=== PATIENT | male | born 1980 | race Caucasian/White ===

== ENCOUNTER 2017-04-03 10:21 | Emergency (ER) | payer MEDICAID ==
[~2017-04-03] VITALS: Ht 162.6 cm; Wt 78.9 kg
--- NOTE | 2017-04-03 10:29 | NUR ---
Patient ambulated to bed 09.
[2017-04-03 10:33] VITALS: BP 136/99
--- NOTE | 2017-04-03 10:38 | NUR ---
PATIENT BIB FAMILY C/O COUGH AND FEVER X 3 DAYS.PT HAS PRODUCTIVE COUGH;HX OF ASTHMA;RX OF QVAR . DENIES N/V/D; SKIN IS PINK/WARM/DRY; AAOX4 WITH EVEN AND STEADY GAIT; LUNGS CLEAR BL; HR EVEN AND REGULAR;PATIENT STATES PAIN OF 9/10 AT THIS TIME; PATIENT POSITIONED FOR COMFORT; HOB ELEVATED; BEDRAILS UP X2; BED DOWN. ALL MONITORS IN PLACED;ER MD MADE AWARE OF PT STATUS.
--- NOTE | 2017-04-03 11:10 | NUR ---
Dr. Leo evaluating patient at bedside.
--- NOTE | 2017-04-03 11:18 | NUR ---
XRAY AT BEDSIDE.
--- NOTE | 2017-04-03 11:31 | NUR ---
Patient discharged with v/s stable. Written and verbal after care instructions given and explained. Patient alert, oriented and verbalized understanding of instructions. Ambulatory with to car. All questions addressed prior to discharge. ID band removed. Patient advised to follow up with PMD. Rx of PREDNISONE AND ALBUTEROL given. Patient educated on indication of medication including possible reaction and side effects. Opportunity to ask questions provided and answered.
[2017-04-03 11:32] VITALS: BP 118/93
== END 2017-04-03 11:31 | disposition home or self-care (01) ==
LOC: MED 10:21
DX: J45.901 Unspecified asthma with (acute) exacerbation (principal); B34.9 Viral infection, unspecified
CPT/HCPCS: 71010; 99283

== ENCOUNTER 2021-01-26 09:35 | Emergency (ER) | payer MEDICAID ==
[~2021-01-26] VITALS: Ht 162.6 cm; Wt 78.5 kg
[2021-01-26 09:46] VITALS: BP 143/87
--- NOTE | 2021-01-26 09:54 | NUR ---
Pt to lobby
[2021-01-26] MEDS ORDERED: FAMOTIDINE 20 MG TAB PO ONE (10:45)
[2021-01-26] MEDS ORDERED: ALUMINUM HYD/MAG/SIMETHICONE 30 ML UDC PO ONE (10:45)
[2021-01-26] MEDS ORDERED: ONDANSETRON 4 MG ODT PO ONE (10:45)
--- NOTE | 2021-01-26 11:15 | NUR ---
PT AMBULATED TO CHAIR A
--- NOTE | 2021-01-26 11:20 | NUR ---
40 Y/O MALE C/O EPIGASTRIC PAIN X5DAYS. +DIARRHEA. DENIES N/V. PT WAS SEEN AT [facility] YESTERDAY AND WAS GIVEN PEPCID, NEVER TOOK IT. PT STATES PAIN IS WHEN HE EATS/DRINKS. PT A/O X4 WITH EVEN AND UNLABORED RESPIRATIONS PMH:ROSALINE NKDA
[2021-01-26] MEDS ORDERED: ONDA-24 PO (12:24)
--- NOTE | 2021-01-26 12:42 | NUR ---
Patient discharged with v/s stable. Written and verbal after care instructions given and explained. Patient alert, oriented and verbalized understanding of instructions. Ambulatory with steady gait. All questions addressed prior to discharge. ID band removed. Patient advised to follow up with PMD. Rx of Zofran ODT given. Patient educated on indication of medication including possible reaction and side effects. Opportunity to ask questions provided and answered.
== END 2021-01-26 12:42 | disposition home or self-care (01) ==
LOC: MED 09:35
DX: K29.70 Gastritis, unspecified, without bleeding (principal); J45.909 Unspecified asthma, uncomplicated; Z79.899 Other long term (current) drug therapy
CPT/HCPCS: 81002; 99284; Q0162

== ENCOUNTER 2022-06-27 17:00 | Emergency (ER) | payer SELFPAY ==
[~2022-06-27] VITALS: Ht 157.5 cm; Wt 79.4 kg
[~2022-06-27 17:00] MED LIST: ONDA-188 PO
[2022-06-27 17:08] VITALS: BP 159/87
[2022-06-27] MEDS ORDERED: ALBUTEROL SULFATE/IPRATROPIU 3 ML SOL IH ONE ×2 (17:50→19:14)
--- NOTE | 2022-06-27 19:15 | NUR ---
RT at chair for breathing treatment.
--- NOTE | 2022-06-27 19:42 | NUR ---
Dr. Lee examining patient.
[2022-06-27] MEDS ORDERED: PRED20TA5 PO (19:45)
[2022-06-27] MEDS ORDERED: ALBU0.0912 INH (19:45)
[2022-06-27 20:02] VITALS: BP 142/87
--- NOTE | 2022-06-27 20:02 | NUR ---
Patient discharged with v/s stable. Written and verbal after care instructions given and explained. Patient alert, oriented and verbalized understanding of instructions. Ambulatory with steady gait. All questions addressed prior to discharge. ID band removed. Patient advised to follow up with PMD. Rx of Proventil HFA and Prednisone given. Patient educated on indication of medication including possible reaction and side effects. Opportunity to ask questions provided and answered.
== END 2022-06-27 20:02 | disposition home or self-care (01) ==
LOC: MED 17:00
DX: T59.894A Toxic effect of other specified gases, fumes and vapors, undetermined, initial encounter (principal); J45.909 Unspecified asthma, uncomplicated; Z79.899 Other long term (current) drug therapy; Y92.89 Other specified places as the place of occurrence of the external cause
CPT/HCPCS: 71045; 93005; 94640; 99283